=== PATIENT | female | born 1940 | race Caucasian/White ===

== ENCOUNTER 2021-12-28 11:30 | Inpatient (IN) | payer MEDICARE ==
[2021-12-28 12:43] LABS: Hemoglobin 9.1 g/dL (12.0-15.5); Mean Corpuscular HGB CONC 32.4 g/dL (32.0-36.0); Mean Corpuscular Hemoglobin 24.9 pg (27.0-33.0); Mean Platelet Volume 10.4 fl (7.4-10.4); Platelet Count 270 10x3/uL (150-450); RBC Distribution Width 15.5 % (11.5-14.5); Red Blood Cell (RBC) Count 3.65 10x6/uL (3.90-5.03); White Blood Cell (WBC) Count 22.8 10x3/uL (3.5-10.5)
[2021-12-28 12:58] LABS: ALT (SGPT) 13 U/L (8-55); AST (SGOT) 19 U/L (5-34); Albumin 3.1 g/dL (3.4-4.8); Alkaline Phosphatase 66 U/L (40-110); Anion Gap 16 mmol/L (10-20); BUN (Urea Nitrogen) 24 mg/dL (9.8-20.1); Bilirubin, Total 0.4 mg/dL (0.2-1.2); Calc. Creatinine Clearance 0 mL/min (70-130); Calcium 8.7 mg/dL (7.8-10.44); Carbon Dioxide 24 mmol/L (23-31); Chloride 102 mmol/L (98-107); Globulin 3.3 g/dL (2.4-3.5); Glucose 100 mg/dL (83-110); Protein, Total 6.4 g/dL (5.8-8.1); Sodium 139 mmol/L (136-145)
[2021-12-28 13:13] LABS: Potassium 2.9 mmol/L (3.5-5.1)
[2021-12-28 13:16] LABS: Lymphocytes 7 % (21-51); Monocytes 1 % (0-10); Neutrophil 92 % (42-75)
[2021-12-28 13:18] LABS: Anisocytosis SLIGHT = 6-15 cells (100X) (0-5/hpf); Basophilic Stippling SLIGHT = 1-2 cells (100X) (None Seen); MDiff Complete? YES; Microcytosis SLIGHT = 6-15 cells (100X) (0-5/hpf)
[2021-12-28 13:19] LABS: Ovalocytes SLIGHT = 2-5 cells (100X) (0-1/hpf); Platelet Clumps SLIGHT; Platelet Morphology Comment Appears Adequate
[2021-12-28] MEDS ORDERED: Ondansetron PF 4 MG/2 ML Vial ONE ×2 (13:38→18:34)
[2021-12-28] MEDS ORDERED: NS 0.9% w/ 40 MEQ KCL 1,000 ML IV ONE (13:38)
[2021-12-28 13:41] LABS: Bilirubin Neg (Negative); Blood, Urine 50 (Negative); Glucose, Urine (Dipstick) Normal (Negative); Ketone, Urine Negative (Negative); Leukocyte Negative (Negative); Nitrite Negative (Negative); Protein, Urine (Dipstick) 100 mg/dl (Neg-Trace); Specific Gravity, Urine 1.025 (1.002-1.036); Urobilinogen Normal mg/dL (Less than 2)
[2021-12-28 13:42] LABS: Clarity Hazy (Clear)
[2021-12-28] MEDS ORDERED: Potassium Chloride 20 MEQ TAB ONE (13:42)
[2021-12-28 14:21] LABS: Bacteria/HPF 1+ HPF (None Seen); RBC/HPF 0-3 HPF (0-3); Squamous Epithelial 0-3 HPF (0-3); WBC/HPF 0-3 HPF (0-3); Yeast-Budding Rare HPF (None Seen)
[2021-12-28] MEDS ORDERED: Piperacillin/Tazobactam 4.5 GM in Sodium Chloride 0.9% 100 ML IVPB SCH (15:15)
[2021-12-28 15:36] LABS: SARS-CoV-2 NAA Rapid Test Not Detected (NotDetected)
[2021-12-28] MEDS ORDERED: Metoprolol Tartrate 5 MG/5 ML VIAL ONE (15:58)
[2021-12-28] MEDS ORDERED: Piperacillin/Tazobactam 2.25 GM VIAL ONE (15:58)
[2021-12-28] MEDS ORDERED: PROPOFOL 20 ML ONE (16:10)
[2021-12-28] MEDS ORDERED: Lidocaine 1% PF 5 ML VIAL ONE (16:11)
[2021-12-28] MEDS ORDERED: PHENYLEPHRINE-NS 100 MCG/ML 10 ML SYRINGE ONE (16:11)
[2021-12-28] MEDS ORDERED: Fentanyl 100 MCG/2 ML VIAL ONE ×2 (16:11→18:40)
[2021-12-28] MEDS ORDERED: Rocuronium Bromide 10 MG/ML (10ML VIAL) ONE (16:11)
[2021-12-28] MEDS ORDERED: Ondansetron PF 4 MG/2 ML Vial IVP PRN ×2 (16:16→17:23)
[2021-12-28] MEDS ORDERED: Morphine 4 MG/ML VIAL SLOW IVP PRN (16:16)
[2021-12-28] MEDS ORDERED: hydrALAZINE 20 MG/ML VIAL SLOW IVP PRN (16:16)
[2021-12-28] MEDS ORDERED: Morphine 2 MG/ML VIAL SLOW IVP PRN (16:16)
[2021-12-28] MEDS ORDERED: Meclizine HCl 12.5 MG TAB PO PRN (16:20)
[2021-12-28] MEDS ORDERED: Sodium Chloride 0.9% 0 ML ONE (16:34)
[2021-12-28] MEDS ORDERED: Succinylcholine 200 MG/10 ml SYRINGE FS ONE (16:51)
[2021-12-28] MEDS ORDERED: Zolpidem Tartrate 5 MG TAB PO PRN (17:23)
[2021-12-28] MEDS ORDERED: diphenhydrAMINE 50 MG/ML VIAL IM PRN (17:23)
[2021-12-28] MEDS ORDERED: Naloxone HCl 0.4 mg/ml Vial IV PRN (17:23)
[2021-12-28] MEDS ORDERED: fentaNYL Citrate/PF 1,000 MCG, Admixture Fee 1 EACH in Sodium Chloride 0.9% 30 ML IV PRN (17:23)
[2021-12-28] MEDS ORDERED: diphenhydrAMINE 50 MG/ML VIAL IVP PRN (17:23)
[2021-12-28] MEDS ORDERED: Promethazine HCl 25 MG/ML VIAL IM PRN (17:23)
[2021-12-28] MEDS ORDERED: diphenhydrAMINE 25 MG CAP PO PRN (17:23)
[2021-12-28] MEDS ORDERED: Communication Order-Pharmacy FS SCH (17:30)
[2021-12-28] MEDS ORDERED: Electrolyte Replacement Protocol 1 EACH FS PRN (17:42)
[2021-12-28 18:29] LABS: Iron 11 ug/dL (50-170); Iron Binding Capacity, Total 318 mcg/dL (265-497); Magnesium 1.7 mg/dL (1.6-2.6)
[2021-12-28 18:30] LABS: Iron 11 ug/dL (50-170); Iron Binding Capacity, Total 318 mcg/dL (265-497)
[2021-12-28 18:44] LABS: Reflex for Review?? YES
[2021-12-28] MEDS ORDERED: Magnesium 2 GM/50 ML(in water) 2 GM in Premix Bag 1 BAG IVPB SCH (18:45)
[2021-12-28] MEDS ORDERED: Ondansetron ODT 4 MG TAB SL PRN (18:47)
[2021-12-28] MEDS: Potassium Chloride 20 MEQ, Admixture Fee 1 EACH in Lactated Ringer's 1,000 ML IV SCH (20:24)
[2021-12-28 20:37] VITALS: BMI 19.3
[2021-12-28] MEDS: Famotidine/PF 20 mg/2ml Vial SLOW IVP SCH (21:21)
[2021-12-28 21:35] LABS: Lactic Acid 0.5 mmol/L (0.5-2.2)
[2021-12-28] MEDS ORDERED: cefOXitin 2 GM in Sodium Chloride 0.9% 100 ML IVPB SCH (22:00)
[2021-12-28] MEDS: cefOXitin Sodium/Dextrose,Iso 2 GM in Premix Bag 1 BAG IVPB SCH (22:14)
[2021-12-28] MEDS: Enoxaparin Sodium 30 MG/0.3 ML SYRINGE SC SCH (22:36)
[2021-12-29] MEDS: Potassium Chloride 20 MEQ, Admixture Fee 1 EACH in Lactated Ringer's 1,000 ML IV SCH (03:56)
[2021-12-29 04:34] LABS: #Monocytes 0.3 10x3/uL (0.0-1.1); #Neutrophils 17.3 10x3/uL (1.5-8.4); %Basophils 0.1 % (0.0-2.0); %Lymphocytes 4.8 % (18.0-47.0); %Monocytes 1.7 % (0.0-10.0); %Neutrophils 92.8 % (40.0-75.0); Hemoglobin 9.7 g/dL (12.0-15.5); Mean Corpuscular HGB CONC 32.3 g/dL (32.0-36.0); Mean Corpuscular Hemoglobin 25.2 pg (27.0-33.0); Mean Corpuscular Volume 77.9 fl (81.6-98.3); Mean Platelet Volume 10.8 fl (7.4-10.4); Platelet Count 256 10x3/uL (150-450); RBC Distribution Width 15.8 % (11.5-14.5); Red Blood Cell (RBC) Count 3.85 10x6/uL (3.90-5.03); White Blood Cell (WBC) Count 18.7 10x3/uL (3.5-10.5)
[2021-12-29 04:53] LABS: Anion Gap 18 mmol/L (10-20); BUN (Urea Nitrogen) 14 mg/dL (9.8-20.1); Calc. Creatinine Clearance 42 mL/min (70-130); Calcium 8.6 mg/dL (7.8-10.44); Carbon Dioxide 20 mmol/L (23-31); Chloride 105 mmol/L (98-107); Glucose 156 mg/dL (83-110); Magnesium 1.9 mg/dL (1.6-2.6); Potassium 4.5 mmol/L (3.5-5.1); Sodium 138 mmol/L (136-145)
[2021-12-29] MEDS ORDERED: Magnesium 2 GM/50 ML(in water) 2 GM in Premix Bag 1 BAG IVPB SCH (05:30)
[2021-12-29] MEDS: cefOXitin Sodium/Dextrose,Iso 2 GM in Premix Bag 1 BAG IVPB SCH (06:47)
[2021-12-29] MEDS: Propranolol HCl LA 80 MG CAP PO SCH (08:53)
[2021-12-29] MEDS: Famotidine/PF 20 mg/2ml Vial SLOW IVP SCH (08:54)
[2021-12-29] MEDS ORDERED: Famotidine 20 MG TAB PO SCH ×2 (09:15→21:00)
[2021-12-29] MEDS ORDERED: Potassium Chloride 20 MEQ, Admixture Fee 1 EACH in Lactated Ringer's 1,000 ML IV SCH (10:27)
[2021-12-29] MEDS ORDERED: Acetaminophen 500 MG TAB PO SCH (10:45)
[2021-12-29] MEDS: Acetaminophen 500 MG TAB PO SCH ×2 (16:41→22:06)
[2021-12-29] MEDS: Enoxaparin Sodium 30 MG/0.3 ML SYRINGE SC SCH (22:00)
[2021-12-29] MEDS ORDERED: Enoxaparin Sodium 30 MG/0.3 ML SYRINGE ONE (22:00)
[2021-12-30 06:13] LABS: Hemoglobin 9.8 g/dL (12.0-15.5); Mean Corpuscular HGB CONC 32.1 g/dL (32.0-36.0); Mean Corpuscular Hemoglobin 24.9 pg (27.0-33.0); Mean Corpuscular Volume 77.6 fl (81.6-98.3); Mean Platelet Volume 10.6 fl (7.4-10.4); Platelet Count 308 10x3/uL (150-450); RBC Distribution Width 15.6 % (11.5-14.5); Red Blood Cell (RBC) Count 3.93 10x6/uL (3.90-5.03); White Blood Cell (WBC) Count 20.4 10x3/uL (3.5-10.5)
[2021-12-30 06:18] LABS: MDiff Complete? YES; Manual Diff?? YES
[2021-12-30] MEDS: Acetaminophen 500 MG TAB PO SCH ×4 (06:21→22:46)
[2021-12-30 06:36] LABS: Band 4 % (5-11); Lymphocytes 4 % (21-51); Monocytes 5 % (0-10); Neutrophil 87 % (42-75)
[2021-12-30 06:37] LABS: Platelet Morphology Comment Appears Adequate
[2021-12-30 06:38] LABS: Anisocytosis SLIGHT = 6-15 cells (100X) (0-5/hpf); Elliptocytes SLIGHT = 2-5 cells (100X) (0-1/hpf); Hypochromia SLIGHT = 6-15 cells (100X) (0-5/hpf); Macrocytosis SLIGHT = 6-15 cells (100X) (0-5/hpf); Microcytosis SLIGHT = 6-15 cells (100X) (0-5/hpf); Polychromasia SLIGHT = 2-3 cells (100X) (0-2/hpf)
[2021-12-30 06:44] LABS: Anion Gap 14 mmol/L (10-20); BUN (Urea Nitrogen) 15 mg/dL (9.8-20.1); Calc. Creatinine Clearance 44 mL/min (70-130); Calcium 8.9 mg/dL (7.8-10.44); Carbon Dioxide 26 mmol/L (23-31); Chloride 99 mmol/L (98-107); Glucose 95 mg/dL (83-110); Magnesium 1.9 mg/dL (1.6-2.6); Potassium 4.3 mmol/L (3.5-5.1); Sodium 135 mmol/L (136-145)
[2021-12-30] MEDS ORDERED: traMADol HCl 50 MG TAB PO PRN (07:08)
[2021-12-30] MEDS ORDERED: Ibuprofen 600 MG TAB PO PRN (07:08)
[2021-12-30] MEDS ORDERED: Magnesium 2 GM/50 ML(in water) 2 GM in Premix Bag 1 BAG IVPB SCH (07:30)
[2021-12-30] MEDS: Propranolol HCl LA 80 MG CAP PO SCH (09:03)
[2021-12-30 19:09] LABS: Lead-Whole Blood 1 ug/dL (0-4)
[2021-12-30] MEDS: Enoxaparin Sodium 30 MG/0.3 ML SYRINGE SC SCH (20:53)
[2021-12-30] MEDS ORDERED: Famotidine 20 MG TAB PO SCH (21:00)
[2021-12-31] MEDS: Acetaminophen 500 MG TAB PO SCH ×3 (05:31→17:43)
[2021-12-31 05:57] LABS: ALT (SGPT) 18 U/L (8-55); AST (SGOT) 24 U/L (5-34); Albumin 2.9 g/dL (3.4-4.8); Alkaline Phosphatase 81 U/L (40-110); Anion Gap 14 mmol/L (10-20); BUN (Urea Nitrogen) 16 mg/dL (9.8-20.1); Bilirubin, Total 0.4 mg/dL (0.2-1.2); Calc. Creatinine Clearance 37 mL/min (70-130); Calcium 8.6 mg/dL (7.8-10.44); Carbon Dioxide 26 mmol/L (23-31); Chloride 97 mmol/L (98-107); Globulin 3.1 g/dL (2.4-3.5); Glucose 86 mg/dL (83-110); Potassium 3.9 mmol/L (3.5-5.1); Sodium 133 mmol/L (136-145)
[2021-12-31 06:07] LABS: Hemoglobin 9.4 g/dL (12.0-15.5); Mean Corpuscular HGB CONC 31.8 g/dL (32.0-36.0); Mean Corpuscular Hemoglobin 24.4 pg (27.0-33.0); Mean Corpuscular Volume 76.9 fl (81.6-98.3); Mean Platelet Volume 10.6 fl (7.4-10.4); Platelet Count 283 10x3/uL (150-450); RBC Distribution Width 15.2 % (11.5-14.5); Red Blood Cell (RBC) Count 3.85 10x6/uL (3.90-5.03); White Blood Cell (WBC) Count 21.2 10x3/uL (3.5-10.5)
[2021-12-31 06:39] LABS: MDiff Complete? YES; Manual Diff?? YES
[2021-12-31 07:07] LABS: Anisocytosis SLIGHT = 6-15 cells (100X) (0-5/hpf); Hypochromia SLIGHT = 6-15 cells (100X) (0-5/hpf); Macrocytosis SLIGHT = 6-15 cells (100X) (0-5/hpf); Microcytosis SLIGHT = 6-15 cells (100X) (0-5/hpf); Poikilocytosis SLIGHT = 6-15 cells (100X) (0-5/hpf); Polychromasia SLIGHT = 2-3 cells (100X) (0-2/hpf); Target Cells SLIGHT = 2-5 cells (100X) (0-1/hpf)
[2021-12-31 07:23] LABS: Band 6 % (5-11); Lymphocytes 7 % (21-51); Monocytes 5 % (0-10); Neutrophil 82 % (42-75)
[2021-12-31 07:24] LABS: Platelet Morphology Comment Appears Adequate
[2021-12-31] MEDS ORDERED: Magnesium 2 GM/50 ML(in water) 2 GM in Premix Bag 1 BAG IVPB SCH (07:30)
[2021-12-31] MEDS: Propranolol HCl LA 80 MG CAP PO SCH (08:36)
[2021-12-31 14:27] LABS: Bilirubin 1+ (Negative); Blood, Urine 25 (Negative); Clarity Clear (Clear); Glucose, Urine (Dipstick) Normal (Negative); Ketone, Urine 5 mg/dL (Negative); Leukocyte 100 (Negative); Nitrite Negative (Negative); Protein, Urine (Dipstick) 100 mg/dl (Neg-Trace); Specific Gravity, Urine 1.015 (1.002-1.036); Urobilinogen Normal mg/dL (Less than 2)
[2021-12-31 14:28] LABS: Urine Culture Reflex No No
[2021-12-31 14:52] LABS: Bacteria/HPF 1+ HPF (None Seen)
[2021-12-31 14:53] LABS: Yeast-Budding 1+ HPF (None Seen)
[2021-12-31] MEDS: cefTRIAXone\\ROCEPHIN 1 GM in Sodium Chloride 0.9% 100 ML IVPB SCH (18:36)
[2021-12-31] MEDS: Enoxaparin Sodium 30 MG/0.3 ML SYRINGE SC SCH (20:47)
[2022-01-01] MEDS: Acetaminophen 500 MG TAB PO SCH ×4 (00:34→12:49)
[2022-01-01 04:40] LABS: #Basophils 0.1 10x3/uL (0.0-0.2); #Eosinphils 0.1 10x3/uL (0.0-0.5); #Monocytes 1.3 10x3/uL (0.0-1.1); #Neutrophils 11.5 10x3/uL (1.5-8.4); %Basophils 0.3 % (0.0-2.0); %Eosinophils 0.6 % (0.0-6.0); %Lymphocytes 14.5 % (18.0-47.0); %Monocytes 8.3 % (0.0-10.0); %Neutrophils 75.1 % (40.0-75.0); Hemoglobin 10.4 g/dL (12.0-15.5); Mean Corpuscular HGB CONC 32.5 g/dL (32.0-36.0); Mean Corpuscular Hemoglobin 24.6 pg (27.0-33.0); Mean Corpuscular Volume 75.7 fl (81.6-98.3); Mean Platelet Volume 10.7 fl (7.4-10.4); Platelet Count 372 10x3/uL (150-450); RBC Distribution Width 15.4 % (11.5-14.5); Red Blood Cell (RBC) Count 4.23 10x6/uL (3.90-5.03); White Blood Cell (WBC) Count 15.4 10x3/uL (3.5-10.5)
[2022-01-01 04:55] LABS: CRP (Inflammatory) 9.21 mg/dL (= or < 0.5); Magnesium 1.7 mg/dL (1.6-2.6)
[2022-01-01] MEDS ORDERED: Magnesium 2 GM/50 ML(in water) 2 GM in Premix Bag 1 BAG IVPB SCH (08:00)
[2022-01-01] MEDS: Polyethylene Glycol 3350 17 GM Packet PO SCH (09:32)
[2022-01-01] MEDS: Propranolol HCl LA 80 MG CAP PO SCH (09:32)
[2022-01-01] MEDS: Multivitamin W/ Minerals 1 TAB PO SCH (09:33)
[2022-01-01] MEDS: cefTRIAXone\\ROCEPHIN 1 GM in Sodium Chloride 0.9% 100 ML IVPB SCH (17:05)
[2022-01-01] MEDS: Enoxaparin Sodium 30 MG/0.3 ML SYRINGE SC SCH (20:56)
[2022-01-02] MEDS: Acetaminophen 500 MG TAB PO SCH ×3 (00:30→10:19)
[2022-01-02 04:49] LABS: #Basophils 0.1 10x3/uL (0.0-0.2); #Eosinphils 0.1 10x3/uL (0.0-0.5); #Monocytes 1.5 10x3/uL (0.0-1.1); #Neutrophils 14.8 10x3/uL (1.5-8.4); %Basophils 0.4 % (0.0-2.0); %Eosinophils 0.7 % (0.0-6.0); %Lymphocytes 11.1 % (18.0-47.0); %Neutrophils 78.4 % (40.0-75.0); Hemoglobin 9.2 g/dL (12.0-15.5); Mean Corpuscular HGB CONC 31.8 g/dL (32.0-36.0); Mean Corpuscular Hemoglobin 24.3 pg (27.0-33.0); Mean Corpuscular Volume 76.5 fl (81.6-98.3); Mean Platelet Volume 10.2 fl (7.4-10.4); Platelet Count 304 10x3/uL (150-450); RBC Distribution Width 15.1 % (11.5-14.5); Red Blood Cell (RBC) Count 3.78 10x6/uL (3.90-5.03); White Blood Cell (WBC) Count 18.9 10x3/uL (3.5-10.5)
[2022-01-02 07:45] VITALS: BP 140/65; TEMP 98.1
[2022-01-02] MEDS: Multivitamin W/ Minerals 1 TAB PO SCH (08:57)
[2022-01-02] MEDS: Polyethylene Glycol 3350 17 GM Packet PO SCH (08:58)
[2022-01-02] MEDS: Propranolol HCl LA 80 MG CAP PO SCH (08:58)
== END 2022-01-02 11:20 | disposition home or self-care (01) | DRG 330 ==
LOC: CSHERS 11:30 → CSHTELE 17:56
PROVIDERS: ADMIT Hospitalist; ATTEND Hospitalist
PROC: 0DBF0ZZ Excision of Right Large Intestine, Open Approach (ICD-10-PCS; principal; 2021-12-28)
PROC: 02HV33Z Insertion of Infusion Device into Superior Vena Cava, Percutaneous Approach (ICD-10-PCS; 2021-12-28)
PROC: 0DB80ZZ Excision of Small Intestine, Open Approach (ICD-10-PCS; 2021-12-28)
DX: C18.4 Malignant neoplasm of transverse colon (principal); K56.1 Intussusception; N17.9 Acute kidney failure, unspecified; I13.0 Hypertensive heart and chronic kidney disease with heart failure and stage 1 through stage 4 chronic kidney disease, or unspecified chronic kidney disease; J98.11 Atelectasis; K56.609 Unspecified intestinal obstruction, unspecified as to partial versus complete obstruction; K63.89 Other specified diseases of intestine; E86.0 Dehydration; M81.0 Age-related osteoporosis without current pathological fracture; R00.0 Tachycardia, unspecified; I48.91 Unspecified atrial fibrillation; R91.1 Solitary pulmonary nodule; D50.9 Iron deficiency anemia, unspecified; D72.829 Elevated white blood cell count, unspecified; N18.9 Chronic kidney disease, unspecified; E87.6 Hypokalemia; Z20.822 Contact with and (suspected) exposure to COVID-19; Z79.899 Other long term (current) drug therapy; Z90.710 Acquired absence of both cervix and uterus; Z90.49 Acquired absence of other specified parts of digestive tract; Z98.890 Other specified postprocedural states; Z79.1 Long term (current) use of non-steroidal anti-inflammatories (NSAID); Z79.891 Long term (current) use of opiate analgesic; Z88.2 Allergy status to sulfonamides; Z90.722 Acquired absence of ovaries, bilateral
CPT/HCPCS: 36415; 71045; 74177; 80048; 80053; 81001; 81003; 81015; 82378; 82607; 82728; 82746; 83540; 83550; 83605; 83655; 83690; 83735; 84484; 85025; 85060; 86140; 86850; 86900; 86901; 87040; 87071; 88309; 93005; 93010; 93306; 94760; 96361; 96365; 96375; A4649; C1751; J0694; J0696; J1642; J1650; J2405; J2543; J2704; J3010; J3475; J3480; J3490; J7120; Q0162; S0028; U0002